=== PATIENT | female | born 1960 | race Caucasian/White ===

== ENCOUNTER 2023-07-02 14:43 | Outpatient (CLI) | payer MEDICAID ==
[~2023-07-02 14:43] MED LIST: ASPI-1265 PO; CHOL10002 PO; COL100C PO; CYAN-104 PO; LEVO25TA7 PO; MAGN400C PO; PANT-47 PO; SIMV-42 PO
== END 2023-07-02 23:59 | disposition home or self-care (01) ==
LOC: RAD 14:43
PROVIDERS: ATTEND Family Medicine
DX: M47.812 Spondylosis without myelopathy or radiculopathy, cervical region (principal); M50.90 Cervical disc disorder, unspecified, unspecified cervical region; M54.50 Low back pain, unspecified
CPT/HCPCS: 72040; 72110